=== PATIENT | female | born 1990 ===

== ENCOUNTER 2018-10-30 15:45 | Emergency (ER) | payer SELFPAY ==
--- NOTE | 2018-10-30 15:50 | C.PDOC ---
History Of Present Illness 28 year old female w/ LMP 1.2.19 presents for evaluation of suprapubic abdominal pain and spotting associated with dysuria for 1 week. The patient reports she had a regular 3 day period in August, light period in September, and no menstrual cycles since. Pt notes the abdominal pain is not similar to menstrual cramps and spotting amount has remained constant in the amount of blood per day. She notes only having to change one pad a day. Pt states no complications during her , vaginal delivery. Admits taking no medi cations for the pain. She otherwise denies any yellowish discharge, history of STDS, vaginal rash or high risk sexual activity. She denies any fall or trauma. No back pain. Denies fever, chills, recent falls, recent trauma, and any other associated symptoms. Time Seen by Provider: 10/30/18 15:50 Chief Complaint (Nursing): Abdominal Pain History Per: Patient History/Exam Limitations: no limitations Onset/Duration Of Symptoms: Days (x1 week) Current Symptoms Are (Timing): Still Present Location Of Pain/Discomfort: Suprapubic Quality Of Discomfort: Unable To Describe Associated Symptoms: denies: Fever, Chills Recent travel outside of the [place]: No Past Medical History Reviewed: Historical Data, Nursing Documentation, Vital Signs Family History: States: Unknown Family Hx Review Of Systems Except As Marked, All Systems Reviewed And Found Negative. Constitutional: Negative for: Fever, Chills, Other ((-) recent fall. (-) recent trauma. ) Gastrointestinal: Positive for: Abdominal Pain (suprapubic. ) Genitourinary: Positive for: Dysuria, Vaginal Bleeding (spotting. ) Physical Exam - Physical Exam Appears: Well, Non-toxic, No Acute Distress Skin: Warm, Dry Head: Atraumatic, Normacephalic Eye(s): bilateral: Normal Inspection, PERRL, EOMI Ear(s): Bilateral: Normal Nose: Normal Oral Mucosa: Moist Tongue: Normal Appearing Lips: Normal Appearing Teeth: Normal Dentition Gingiva: Normal Appearing Throat: Normal, No Erythema, No Exudate Neck: Normal, Normal ROM, Supple, Other (no meningeal signs) Lymphatic: Normal Exam Chest: Symmetrical, No Deformity Cardiovascular: Rhythm Regular, No Murmur Respiratory: Normal Breath Sounds, No Rales, No Rhonchi, No Wheezing Gastrointestinal/Abdominal: Soft, Tenderness (suprapubic. ), No Organomegaly, No Mass, No Distention, No Guarding, No Rebound, No Hernia Back: Normal Inspection, No CVA Tenderness, No Vertebral Tenderness Extremity: Bilateral: Atraumatic, Normal Color And Temperature, Normal ROM Neurological/Psych: Oriented x3, Normal Speech, Normal Cognition ED Course And Treatment - Laboratory Results Result Diagrams: 10/30/18 16:15 10/30/18 16:15 O2 Sat by Pulse Oximetry: 100 (RA) Pulse Ox Interpretation: Normal - CT Scan/US pelvis/transvaginal US Other Rad Studies (CT/US): Read By Radiologist, Radiology Report Reviewed CT/US Interpretation: Name:NICHELLE CERNA Exam Date:Oct 30, 2018 5:04:29 PM EDT. Modality Type:SD\US\OT\PA\SR. Description:US - PELVIC REAL TIME TRANSABDOMINAL/TRANSVAGINAL W COLOR DOPPLER. Gender:F Laterality:Not applicable. :90 Referring Physician:BUCKY DICKINSON. EXAM: US Pelvis, Complete Transvaginal and Transabdominal. COMPARISON: None provided. CLINICAL HISTORY: Suprapubic pain. TECHNIQUE: Transvaginal and transabdominal pelvic ultrasound (complete) with image documentation. FINDINGS: ENDOMETRIUM: Prominent endometrial stripe at 1.4 cm. UTERUS/CERVIX: The uterus appears within normal limits. No uterine fibroid or other mass evident. RIGHT OVARY: Normal Doppler flow. No abnormal mass. Incidental small calcification right ovary. LEFT OVARY: Normal Doppler flow. No abnormal mass. FREE FLUID: No free fluid. IMPRESSION: No suspicious uterine mass. Prominent endometrial stripe of 1.4 cm in thickness. Incidental small calcification right ovary. Clinical correlation advised. . Electronically signed on Oct 30, 2018 6:15:39 PM EDT by: Marek Hoff M.D., Certified by ABR, Diagnostic Radiology Medical Decision Making Medical Decision Makin yr old F p/w suprapubic abdominal pain and vaginal spotting x1 week. No fall or trauma. No yellowish discharge. +dysuria w/ out CVAT. Likely DUB given lightened periods vs UTI. Pt otherwise in NAD. Initial plan: -US Transvaginal -Blood sent. -Tylenol -Zofran -Urinalysis -HCG Urine 1611 lactic unremarkable. 1746 UTI on labs w/ blood in urine. No trauma to back or fall. No CVAT on re-exam no leukocytosis pending US results pt in NAD. 1947 Pelvic exam done w/ Female Tech: No CMT or discharge noted from OS. No Adenexal pain. NO CVAT on re-exam No suprapubic on re-exam likely DUB w/ UTI Given return indications, follow up w/ obgyn and uro, scripts, pt agreeable to plan. Disposition - Disposition Referrals: Anahi Lewis DO [Staff Provider] - [facility] [Outside] [facility] [Outside] [facility] [Outside] Stalin Allen MD [Staff Provider] - Disposition Time: 19:48 Condition: GOOD Additional Instructions: NEHEMIAH SHAY, thank you for letting us take care of you today. Your provider was Dwayne Munson and you were treated for ABD PAIN. The emergency medical care you received today was directed at your acute symptoms. If you were prescribed any medication, please fill it and take as directed. It may take several days for your symptoms to resolve. Return to the Emergency Department if your symptoms worsen, do not improve, or if you have any other problems. Please contact your doctor or call one of the physicians/clinics you have been referred to that are listed on the Patient Visit Information form that is included in your discharge packet. Bring any paperwork you were given at discharge with you along with any medications you are taking to your follow up visit. Our treatment cannot replace ongoing medical care by a primary care provider outside of the emergency department. Thank you for allowing the [facility] team to be part of your care today. If you had an X-Ray or CT scan: A Radiologist will review the ED reading if any change in treatment is needed we will contact you. If you had a blood, urine, or wound culture: It will take several days for the results, if any change in treatment is needed we will contact you. If you had an STI test: It will take 48 hours for the results. Please call after 1 week if you have not heard back. Prescriptions: Nitrofurantoin Macrocrystal [Nitrofurantoin] 100 mg PO BID 5 Days #10 capsule Instructions: Absent or Irregular Periods, Urinary Tract Infection, Adult (DC) Forms: [facility] (Martiniquais), Gen Discharge Inst Martiniquais, [facility] (Martiniquais) Print Language: URDU - Clinical Impression Clinical Impression: UTI (urinary tract infection), Dysfunctional uterine bleeding - Scribe Statement The provider has reviewed the documentation as recorded by the Scribe (Eva Wong) Provider Attestation: All medical record entries made by the Scribe were at my direction and personally dictated by me. I have reviewed the chart and agree that the record accurately reflects my personal performance of the history, physical exam, medic al decision making, and the department course for this patient. I have also personally directed, reviewed, and agree with the discharge instructions and disposition.
[2018-10-30] MEDS ORDERED: Sodium Chloride 0.9% 1,000 ML IV ONE (16:12)
[2018-10-30 16:21] LABS: SQUAMOUS EPITHIAL 9 /hpf (0-5); URINE BACTERIA MOD (<OCC); URINE BILIRUBIN NEGATIVE (NEGATIVE); URINE BLOOD 3+ (NEGATIVE); URINE CLARITY Hazy (Clear); URINE COLOR Yellow (YELLOW); URINE GLUCOSE (UA) NORMAL (Normal); URINE LEUKOCYTE ESTERASE 3+ Leu/uL (Negative); URINE PROTEIN NEGATIVE (NEGATIVE); URINE UROBILINOGEN NORMAL mg/dL (0.2-1.0)
[2018-10-30 16:23] LABS: VENOUS BLOOD GAS BASE EXCESS -3.2 mmol/L (0.0-2.0); VENOUS BLOOD GAS PCO2 43 mmHg (40-60); VENOUS BLOOD GAS PO2 36 mm/Hg (30-55); VENOUS BLOOD PH 7.33 (7.32-7.43)
[2018-10-30] MEDS ORDERED: Sodium Chloride 0.9% 1,000 ML ONE (16:23)
[2018-10-30 16:30] LABS: ALB/GLOB RATIO 1.5 (1.0-2.1); ALBUMIN 4.7 g/dL (3.5-5.0); ALT/SGPT 42 U/L (9-52); AST/SGOT 32 U/L (14-36); BLOOD UREA NITROGEN 9 mg/dL (7-17); CALCIUM 9.3 mg/dl (8.6-10.4); GFR NON-AFRICAN AMERICAN > 60; LIPASE 76 U/L (23-300)
[2018-10-30 17:04] LABS: BASO # 0.1 K/uL (0.0-0.2); BASO % 0.6 % (0.0-2.0); EOS # 0.3 K/uL (0.0-0.7); EOS % 3.2 % (0.0-4.0); HEMOGLOBIN 14.8 g/dL (11.0-16.0); LYMPH # 2.9 K/uL (1.0-4.3); LYMPH % 31.2 % (20.0-40.0); MEAN CELL VOLUME 88.4 fL (81.0-99.0); MEAN CORPUSCULAR HEMOGLOBIN 31.3 pg (27.0-31.0); MEAN CORPUSCULAR HGB CONC 35.4 g/dL (33.0-37.0); MEAN PLATELET VOLUME 7.9 fL (7.2-11.7); MONO # 0.6 K/uL (0.0-0.8); MONO % 6.9 % (0.0-10.0); NEUT # 5.3 K/uL (1.8-7.0); NEUT % 58.1 % (50.0-75.0); NRBC % 0.1 % (0.0-2.0); RBC 4.73 Mil/uL (3.80-5.20); RED CELL DISTRIBUTION WIDTH 12.7 % (11.5-14.5); WHITE BLOOD COUNT 9.2 K/uL (4.8-10.8)
[2018-10-30 20:15] VITALS: BP 121/84; PULSE 63; RESP 20; TEMP 98.2; O2SAT 99
--- NOTE | 2018-10-31 17:35 | US ---
Date of service: 10/30/2018 HISTORY: suprapubic pain COMPARISON: None available. TECHNIQUE: Transabdominal and transvaginal FINDINGS: UTERUS: Measures 8.6 x 5.0 x 6.0 cm. Normal in size and appearance. No fibroid or other mass lesion seen. ENDOMETRIUM: Measures 14 mm in diameter. Unremarkable. CERVIX: No cervical abnormality identified. RIGHT OVARY: Measures 3.3 x 2.2 x 2.6 cm. No solid mass. Normal flow. LEFT OVARY: Measures 3.0 x 2.0 x 3.2 cm. No solid mass. Normal flow. FREE FLUID: No significant free fluid noted. OTHER FINDINGS: None. IMPRESSION: Unremarkable pelvic ultrasound. The preliminary findings for this examination were reported by [facility] at 6:15 p.m. on 10/30/2018. There is concurrence of this report with the preliminary findings.
== END 2018-10-30 20:21 | disposition home or self-care (01) ==
LOC: C.ER 15:45
DX: N39.0 Urinary tract infection, site not specified (principal); N93.8 Other specified abnormal uterine and vaginal bleeding
CPT/HCPCS: 76830; 76856; 80053; 81001; 81025; 82803; 83690; 85025; 87086; 96361; 96374; 99285; J2405; J7030